=== PATIENT | male | born 1950 | race Caucasian/White ===

== ENCOUNTER 2019-08-13 06:21 | Day surgery (SDC) | payer BC ==
[2019-08-12 14:38] VITALS: BMI 32.8
[2019-08-13 06:57] LABS: #Eosinphils 0.4 thou/uL (0.0-0.7); #Lymphocytes 1.7 thou/uL (1.20-3.40); #Monocytes 0.5 thou/uL (0.11-0.59); #Neutrophils 4.3 thou/uL (1.40-6.50); %Basophils 0.6 % (0.0-1.0); %Eosinophils 5.8 % (0.0-10.0); %Monocytes 6.8 % (0.0-10.0); %Neutrophils 61.9 % (42.0-75.0); Hemoglobin 15.8 g/dL (14.0-18.0); Mean Corpuscular HGB CONC 34.1 g/dL (32.0-36.0); Mean Corpuscular Hemoglobin 31.4 pg (27.0-31.0); Mean Corpuscular Volume 92.1 fL (78.0-98.0); Mean Platelet Volume 7.5 fL (7.4-10.4); Platelet Count 179 thou/uL (130-400); RBC Distribution Width 11.9 % (11.5-14.5); Red Blood Cell (RBC) Count 5.04 mill/uL (4.70-6.10)
[2019-08-13] MEDS ORDERED: Heparin (Artline) 1,000 ML ONE (08:11)
[2019-08-13 08:16] LABS: Anion Gap 14 mmol/L (10-20); Carbon Dioxide 23 mmol/L (23-31); Chloride 107 mmol/L (98-107); Sodium 140 mmol/L (136-145)
[2019-08-13 08:17] LABS: BUN (Urea Nitrogen) 13 mg/dL (8.4-25.7); Calc. Creatinine Clearance 77 mL/min (70-130); Calcium 9.2 mg/dL (7.8-10.44); Estimated GFR-MDRD 58; Glucose 119 mg/dL (80-115)
[2019-08-13] MEDS ORDERED: Iopamidol 370 76% 100 ML VIAL ONE (09:48)
[2019-08-13] MEDS ORDERED: Heparin (Artline) 500 ML ONE (10:04)
[2019-08-13] MEDS ORDERED: Heparin 10,000 UNITS/1 ML VIAL ONE (10:04)
[2019-08-13] MEDS ORDERED: Protamine Sulfate 50 MG/5 ML VIAL ONE (10:27)
[2019-08-13] MEDS ORDERED: Lisinopril 2.5 MG TAB ONE (10:51)
[2019-08-13] MEDS ORDERED: Lisinopril 5 MG TAB PO SCH (11:15)
--- NOTE | 2019-08-17 14:55 | DIS ---
DATE OF ADMISSION: 08/13/2019 DATE OF DISCHARGE: 08/13/2019 DATE OF PROCEDURE: 08/13/2019. INDICATION FOR PROCEDURE: A 69-year-old gentleman with history of known coronary artery disease status post bypass surgery, underwent stress testing due to shortness of breath and occasional chest discomfort. He was found to have abnormal stress test was advised to undergo cardiac catheterization, was taken to [facility], prepped and draped in sterile fashion, where he underwent the procedure today. The full dictated report will be in the chart. He also has history of hypercholesterolemia, which has been under good control by medications. PROCEDURE IN HOSPITAL: Included cardiac catheterization, left ventriculogram, and coronary arteriography to evaluation of the graft as well as a GABRIEL graft, which was evaluated and also Doppler flow wire to the diagonal branch. DISCHARGE MEDICATIONS: Will include; 1. Vascepa 2 g p.o. b.i.d. 2. Also Ranexa 500 mg b.i.d. He will continue taking his other medications, which include; 1. Vytorin 20 mg a day. 2. He is also taking [id number] Prilosec p.r.n. 3. Metoprolol 50 mg b.i.d. 4. Aspirin 81 mg a day. 5. Flomax 0.4 mg b.i.d. 6. He has taken the Vytorin as once q.p.m., he will continue on the same dose he was taking previously. FOLLOWUP: His followup will be with me in the office in approximately 1 month. He will continue his routine follow up with primary care physician. HOSPITAL COURSE: This very pleasant 69-year-old gentleman, who underwent bypass surgery about 17 years ago, was seen in the office, complaining of increasing shortness of breath and dyspnea with minimal exertion, even walking upstairs, he became short of breath. He had some occasional chest discomfort. He was advised to undergo stress testing, which shows some abnormalities in distal anterior wall apex and inferior wall. He was advised to undergo cardiac catheterization. He is taken to [facility], where he underwent the procedure today. His bypasses were found to be patent. He had a bypass to the right coronary artery, which was a [place] vessel 100% occluded with bypass graft remains patent. He also had a radial graft to a diagonal branch, which was very small, less than 1 mm and appeared to be an ostial stenosis about 50%, but still had slowed down to the diagonal branch and this vessel underwent FFR, with an FFR 0.98. No indication to the [place] vessel, underwent FFR as there was some what appeared to be 50% stenosis in the diagonal branch prior to the insertion of the radial graft. However, there was no evidence of any flow limitation in the vessel. No intervention was performed. The GABRIEL to the left anterior descending artery remained patent without evidence of stenosis, a nice vessel and also distal to the anastomosis, the left anterior descending was completely normal, proximal to that between the diagonal branch and the insertion of the GABRIEL graft, the left anterior descending was 100% occluded, and the right coronary artery was also 100% occluded. He has two separate ostium for the left system and the circumflex has no evidence of disease, normal vessel with no evidence of stenosis or plaque formation. He tolerated the procedure well without difficulties or complications. He was given a 7000 units of heparin to do the FFR and at the end of the procedure, he was given 20 mg of protamine for reversal of this and the sheath was removed. He remained stable. He will be discharged home later today. On his left ventricle, his ejection fraction was 60% to 65%. His LVEDP was slightly elevated at 21 mmHg and this is as suspected he has some diastolic dysfunction. We will start him on Ranexa as well as Vascepa. We will see him back in the office in approximately 1 month. Job ID: [id number]
== END 2019-08-13 14:20 | disposition home or self-care (01) ==
LOC: CCL 06:21
PROVIDERS: ATTEND Internal Medicine Cardiovascular Disease
DX: I25.119 Atherosclerotic heart disease of native coronary artery with unspecified angina pectoris (principal); I25.719 Atherosclerosis of autologous vein coronary artery bypass graft(s) with unspecified angina pectoris; I25.82 Chronic total occlusion of coronary artery; Z79.82 Long term (current) use of aspirin; Z79.899 Other long term (current) drug therapy
CPT/HCPCS: 36415; 80048; 85025; 85347; 93459; 93571; C1769; C1887; J0153; J1644; J2720; Q9967

== ENCOUNTER 2022-02-07 02:46 | Observation (INO) | payer BC ==
[2022-02-07] MEDS ORDERED: Mag-Al 1200 mg/1200 mg/30 ML UDCUP ONE (03:35)
[2022-02-07] MEDS ORDERED: Lidocaine Viscous Sol 2% 15 ml UD Cup ONE (03:35)
[2022-02-07 04:01] LABS: #Eosinphils 0.2 thou/uL (0.0-0.7); #Lymphocytes 0.8 thou/uL (1.20-3.40); #Monocytes 0.6 thou/uL (0.11-0.59); #Neutrophils 9.4 thou/uL (1.40-6.50); %Eosinophils 1.9 % (0.0-10.0); %Lymphocytes 7.2 % (21.0-51.0); %Neutrophils 85.8 % (42.0-75.0); Mean Corpuscular HGB CONC 34.9 g/dL (32.0-36.0); Mean Corpuscular Hemoglobin 33.4 pg (27.0-31.0); Mean Corpuscular Volume 95.7 fL (78.0-98.0); Mean Platelet Volume 7.9 fL (7.4-10.4); Platelet Count 154 thou/uL (130-400); RBC Distribution Width 12.2 % (11.5-14.5); Red Blood Cell (RBC) Count 4.48 mill/uL (4.70-6.10); White Blood Cell (WBC) Count 10.9 thou/uL (4.8-10.8)
[2022-02-07 04:09] LABS: ALT (SGPT) 27 U/L (8-55); AST (SGOT) 18 U/L (5-34); Albumin 4.2 g/dL (3.4-4.8); Alkaline Phosphatase 38 U/L (40-110); Anion Gap 18 mmol/L (10-20); BUN (Urea Nitrogen) 17 mg/dL (8.4-25.7); Bilirubin, Total 0.6 mg/dL (0.2-1.2); Calc. Creatinine Clearance 0 mL/min (70-130); Calcium 9.6 mg/dL (7.8-10.44); Carbon Dioxide 18 mmol/L (23-31); Chloride 105 mmol/L (98-107); Estimated GFR 56; Globulin 2.5 g/dL (2.4-3.5); Glucose 285 mg/dL (80-115); Lipase 33 U/L (8-78); Potassium 4.4 mmol/L (3.5-5.1); Protein, Total 6.7 g/dL (5.8-8.1); Sodium 137 mmol/L (136-145)
[2022-02-07] MEDS ORDERED: Ketorolac Tromethamine 30 MG/ML VIAL ONE (04:30)
[2022-02-07] MEDS ORDERED: Acetaminophen 500 MG TAB ONE ×2 (06:23→12:30)
[2022-02-07 07:38] LABS: Troponin I Less than 0.010 ng/mL (< 0.028)
[2022-02-07 08:18] LABS: SARS-CoV-2 NAA Rapid Test Not Detected (NotDetected)
[2022-02-07] MEDS ORDERED: Dextrose 50% Abboject 50 ML SYRINGE SLOW IVP PRN (12:20)
[2022-02-07] MEDS ORDERED: Dextrose 5% in Water 1,000 ML IV PRN (12:20)
[2022-02-07] MEDS ORDERED: HumaLOG 300 UNITS/3 ML VIAL SC PRN ×2 (12:20)
[2022-02-07 12:37] LABS: Lactic Acid 3.3 mmol/L (0.5-2.2)
[2022-02-07] MEDS ORDERED: Iopamidol-370 76% 500 ML 1 ML ONE (13:26)
[2022-02-07 14:21] LABS: Hemoglobin A1c 7.1 % (4.0-6.0)
[2022-02-07 14:39] LABS: Troponin I Less than 0.010 ng/mL (< 0.028)
[2022-02-07] MEDS ORDERED: Piperacillin/Tazobactam 3.375 GM in Sodium Chloride 0.9% 100 ML IVPB SCH ×2 (15:00→15:30)
[2022-02-07] MEDS ORDERED: Pantoprazole 40 MG VIAL IVP SCH ×2 (15:30→21:00)
[2022-02-07 15:44] VITALS: BMI 33.4
[2022-02-07] MEDS ORDERED: Morphine 2 MG/ML VIAL SLOW IVP SCH (18:15)
[2022-02-07] MEDS ORDERED: Acetaminophen 325 MG TAB PO PRN (21:31)
[2022-02-07] MEDS: Pantoprazole 40 MG VIAL IVP SCH (21:41)
[2022-02-07] MEDS: Piperacillin/Tazobactam 3.375 GM in Sodium Chloride 0.9% 100 ML IVPB SCH (21:41)
[2022-02-08 00:04] LABS: Bacteria/HPF None Seen HPF (None Seen); Bilirubin Negative (Negative); Blood, Urine Negative (Negative); Clarity Clear (Clear); Glucose, Urine (Dipstick) >=1000 mg/dL (Negative); Ketone, Urine Negative (Negative); Leukocyte Negative Leu/uL (Negative); Nitrite Negative (Negative); Protein, Urine (Dipstick) Negative (Neg-Trace); RBC/HPF 0-3 HPF (0-3); Squamous Epithelial None Seen HPF (0-3); Urobilinogen Normal mg/dL (Less than 2); WBC/HPF 0-3 HPF (0-3); pH, Urine 5.5 (5.0-9.0)
[2022-02-08 00:07] LABS: Specific Gravity, Urine 1.051 (1.002-1.036); Urine Culture Reflex No No
[2022-02-08] MEDS: Piperacillin/Tazobactam 3.375 GM in Sodium Chloride 0.9% 100 ML IVPB SCH ×3 (04:15→20:49)
[2022-02-08 04:59] LABS: #Lymphocytes 0.9 thou/uL (1.20-3.40); #Monocytes 0.6 thou/uL (0.11-0.59); #Neutrophils 12.9 thou/uL (1.40-6.50); %Eosinophils 0.1 % (0.0-10.0); %Lymphocytes 6.2 % (21.0-51.0); %Neutrophils 89.7 % (42.0-75.0); Hemoglobin 13.3 g/dL (14.0-18.0); Mean Corpuscular HGB CONC 33.6 g/dL (32.0-36.0); Mean Corpuscular Hemoglobin 32.6 pg (27.0-31.0); Mean Platelet Volume 7.7 fL (7.4-10.4); Platelet Count 121 thou/uL (130-400); RBC Distribution Width 12.5 % (11.5-14.5); Red Blood Cell (RBC) Count 4.08 mill/uL (4.70-6.10); White Blood Cell (WBC) Count 14.4 thou/uL (4.8-10.8)
[2022-02-08 05:16] LABS: Anion Gap 15 mmol/L (10-20); BUN (Urea Nitrogen) 17 mg/dL (8.4-25.7); Calc. Creatinine Clearance 77 mL/min (70-130); Calcium 8.8 mg/dL (7.8-10.44); Carbon Dioxide 19 mmol/L (23-31); Chloride 107 mmol/L (98-107); Estimated GFR 63; Glucose 149 mg/dL (80-115); Sodium 137 mmol/L (136-145)
[2022-02-08] MEDS ORDERED: Sodium Chloride 0.9% 1,000 ML IV SCH ×3 (08:00→12:00)
[2022-02-08] MEDS ORDERED: Ketorolac Tromethamine 30 MG/ML VIAL IVP SCH (08:00)
[2022-02-08] MEDS ORDERED: Ketorolac Tromethamine 30 MG/ML VIAL ONE ×2 (08:21→10:26)
[2022-02-08] MEDS ORDERED: fentaNYL Citrate/PF 100 MCG/2 ML SYRINGE ONE ×2 (08:47→09:59)
[2022-02-08] MEDS ORDERED: Rocuronium Bromide 10 MG/ML (10ML VIAL) ONE (09:01)
[2022-02-08] MEDS ORDERED: PROPOFOL 200 MG/20 ML VIAL ONE (09:01)
[2022-02-08] MEDS ORDERED: Phenylephrine 10 MG/ML VIAL ONE (09:01)
[2022-02-08] MEDS ORDERED: Ondansetron PF 4 MG/2 ML Vial ONE (09:01)
[2022-02-08] MEDS ORDERED: Lidocaine 1% PF 5 ML VIAL ONE (09:01)
[2022-02-08] MEDS ORDERED: SUGAMMADEX SODIUM 200 MG/2 ML VIAL ONE (09:54)
[2022-02-08] MEDS ORDERED: Ibuprofen 600 MG TAB PO PRN (10:19)
[2022-02-08] MEDS ORDERED: HYDROcodone/Acetaminophen 5/325 mg Tablet PO PRN (10:19)
[2022-02-08] MEDS ORDERED: Acetaminophen 500 MG TAB PO PRN (10:19)
[2022-02-08] MEDS ORDERED: Promethazine HCl 25 MG/ML VIAL IM PRN (10:28)
[2022-02-08] MEDS ORDERED: Promethazine HCl 25 MG/ML VIAL IVPB PRN (10:28)
[2022-02-08] MEDS ORDERED: Ondansetron HCl/PF 4 MG/2 ML Vial IVP PRN (10:28)
[2022-02-08] MEDS ORDERED: Meperidine HCl/PF 25 MG/ML VIAL SLOW IVP PRN (10:28)
[2022-02-08] MEDS ORDERED: Acetaminophen 500 MG TAB PO SCH (10:30)
[2022-02-08] MEDS ORDERED: Amoxicillin/Potassium Clav 500 MG TAB PO SCH (11:00)
[2022-02-08] MEDS: Sodium Chloride 0.9% 1,000 ML IV SCH ×2 (12:09→17:12)
[2022-02-08] MEDS: Lactated Ringer's 1,000 ML IV SCH ×2 (12:10→18:45)
[2022-02-08] MEDS: Pantoprazole 40 MG VIAL IVP SCH (12:49)
[2022-02-08] MEDS: Tamsulosin HCl 0.4 MG CAP PO SCH (20:50)
[2022-02-08] MEDS ORDERED: Non-Formulary Item 1 EACH (Omeprazole Magnesium [Prilosec] 10 MG Suspdr.Pkt) PO SCH (21:00)
[2022-02-08] MEDS ORDERED: Ezetimibe 10 MG TAB PO SCH (21:00)
[2022-02-08] MEDS ORDERED: Simvastatin 10 MG TAB PO SCH ×2 (21:00)
[2022-02-09] MEDS: Sodium Chloride 0.9% 1,000 ML IV SCH ×2 (01:15→04:12)
[2022-02-09] MEDS: Piperacillin/Tazobactam 3.375 GM in Sodium Chloride 0.9% 100 ML IVPB SCH (04:05)
[2022-02-09 05:09] LABS: #Eosinphils 0.1 thou/uL (0.0-0.7); #Lymphocytes 0.9 thou/uL (1.20-3.40); #Monocytes 0.3 thou/uL (0.11-0.59); #Neutrophils 8.5 thou/uL (1.40-6.50); %Basophils 0.1 % (0.0-1.0); %Eosinophils 0.7 % (0.0-10.0); %Lymphocytes 8.8 % (21.0-51.0); %Monocytes 2.8 % (0.0-10.0); %Neutrophils 87.6 % (42.0-75.0); Hemoglobin 12.7 g/dL (14.0-18.0); Mean Corpuscular HGB CONC 32.4 g/dL (32.0-36.0); Mean Corpuscular Hemoglobin 32.9 pg (27.0-31.0); Mean Platelet Volume 9.4 fL (7.4-10.4); Platelet Count 107 thou/uL (130-400); RBC Distribution Width 12.6 % (11.5-14.5); Red Blood Cell (RBC) Count 3.85 mill/uL (4.70-6.10); White Blood Cell (WBC) Count 9.7 thou/uL (4.8-10.8)
[2022-02-09 05:13] LABS: ALT (SGPT) 43 U/L (8-55); AST (SGOT) 52 U/L (5-34); Alkaline Phosphatase 36 U/L (40-110); Anion Gap 14 mmol/L (10-20); BUN (Urea Nitrogen) 15 mg/dL (8.4-25.7); Bilirubin, Total 0.7 mg/dL (0.2-1.2); Calc. Creatinine Clearance 85 mL/min (70-130); Calcium 8.1 mg/dL (7.8-10.44); Carbon Dioxide 16 mmol/L (23-31); Chloride 111 mmol/L (98-107); Estimated GFR 70; Globulin 3.2 g/dL (2.4-3.5); Glucose 168 mg/dL (80-115); Magnesium 1.9 mg/dL (1.6-2.6); Potassium 4.9 mmol/L (3.5-5.1); Protein, Total 6.2 g/dL (5.8-8.1); Sodium 136 mmol/L (136-145)
[2022-02-09] MEDS ORDERED: Lisinopril 5 MG TAB PO SCH (09:00)
[2022-02-09] MEDS ORDERED: Amoxicillin/Potassium Clav 500 MG TAB PO SCH (09:00)
[2022-02-09] MEDS ORDERED: Non-Formulary Item 1 EACH (Rosuvastatin Calcium [Rosuvastatin Calcium] 40 MG Tablet) PO SCH (09:00)
[2022-02-09] MEDS ORDERED: Polyethylene Glycol 3350 17 GM Packet PO SCH (09:00)
[2022-02-09] MEDS ORDERED: SIMVASTATIN PO SCH (09:00)
[2022-02-09] MEDS ORDERED: Aspirin 81 mg Enteric Coated Tablet PO SCH (09:00)
[2022-02-09] MEDS ORDERED: EZETIMIBE PO SCH (09:00)
[2022-02-09] MEDS ORDERED: Rosuvastatin 20 MG TAB PO SCH ×2 (09:00)
[2022-02-09] MEDS: Tamsulosin HCl 0.4 MG CAP PO SCH (09:34)
[2022-02-09 11:19] VITALS: BP 118/64
[2022-02-09 13:49] VITALS: TEMP 98.8
== END 2022-02-09 15:34 | disposition home or self-care (01) ==
LOC: ERS 02:46 → 2SW 10:55 → OBSVTOIN 02-08 10:24 → INTOOBSV 02-08 10:24 → OBSVTOIN 02-08 15:22
PROVIDERS: ADMIT Hospitalist; ATTEND Hospitalist
PROC: 0FT44ZZ Resection of Gallbladder, Percutaneous Endoscopic Approach (ICD-10-PCS; principal; 2022-02-09)
DX: K80.00 Calculus of gallbladder with acute cholecystitis without obstruction (principal); K82.A1 Gangrene of gallbladder in cholecystitis; K83.8 Other specified diseases of biliary tract; N28.1 Cyst of kidney, acquired; K76.89 Other specified diseases of liver; K21.9 Gastro-esophageal reflux disease without esophagitis; Z20.822 Contact with and (suspected) exposure to COVID-19; I25.10 Atherosclerotic heart disease of native coronary artery without angina pectoris; I10 Essential (primary) hypertension; E11.9 Type 2 diabetes mellitus without complications; Z79.82 Long term (current) use of aspirin; Z79.899 Other long term (current) drug therapy; Z86.16 Personal history of COVID-19; Z95.1 Presence of aortocoronary bypass graft
CPT/HCPCS: 36415; 36416; 71045; 74177; 76705; 78227; 80048; 80053; 81001; 83036; 83605; 83690; 83735; 84443; 84484; 85025; 87040; 88304; 93005; 96374; 96375; 96376; A9537; C1713; C9113; G0378; J1885; J2270; J2370; J2405; J2543; J2704; J3490; J7050; Q9967

== ENCOUNTER 2022-03-12 17:24 | Inpatient (IN) | payer BC ==
[~2022-03-12 17:24] MED LIST: Iopamidol 370 76% 100 ML VIAL ONE
[2022-03-12] MEDS ORDERED: Cefepime 2 GM VIAL ONE (18:26)
[2022-03-12] MEDS ORDERED: Ibuprofen 800 MG TAB ONE (18:27)
[2022-03-12 18:46] LABS: #Eosinphils 0.2 thou/uL (0.0-0.7); #Lymphocytes 1.1 thou/uL (1.20-3.40); #Monocytes 0.5 thou/uL (0.11-0.59); #Neutrophils 12.4 thou/uL (1.40-6.50); %Basophils 0.3 % (0.0-1.0); %Eosinophils 1.2 % (0.0-10.0); %Lymphocytes 7.4 % (21.0-51.0); %Monocytes 3.3 % (0.0-10.0); %Neutrophils 87.8 % (42.0-75.0); Hemoglobin 15.4 g/dL (14.0-18.0); Mean Corpuscular HGB CONC 33.3 g/dL (32.0-36.0); Mean Corpuscular Hemoglobin 31.9 pg (27.0-31.0); Mean Corpuscular Volume 95.8 fL (78.0-98.0); Mean Platelet Volume 8.5 fL (7.4-10.4); Platelet Count 139 thou/uL (130-400); RBC Distribution Width 12.9 % (11.5-14.5); Red Blood Cell (RBC) Count 4.84 mill/uL (4.70-6.10); White Blood Cell (WBC) Count 14.1 thou/uL (4.8-10.8)
[2022-03-12 18:55] LABS: Bacteria/HPF None Seen HPF (None Seen); Bilirubin Negative (Negative); Blood, Urine Negative (Negative); Clarity Turbid (Clear); Glucose, Urine (Dipstick) 30 mg/dL (Negative); Ketone, Urine 40 mg/dL (Negative); Leukocyte 500 Leu/uL (Negative); Nitrite Negative (Negative); Protein, Urine (Dipstick) 10 mg/dL (Neg-Trace); RBC/HPF 0-3 HPF (0-3); Specific Gravity, Urine 1.022 (1.002-1.036); Squamous Epithelial 0-3 HPF (0-3); Urobilinogen Normal mg/dL (Less than 2); WBC/HPF Greater than 50 HPF (0-3); pH, Urine 5.5 (5.0-9.0)
[2022-03-12 19:04] LABS: ALT (SGPT) 20 U/L (8-55); AST (SGOT) 21 U/L (5-34); Albumin 4.3 g/dL (3.4-4.8); Alkaline Phosphatase 35 U/L (40-110); Anion Gap 18 mmol/L (10-20); BUN (Urea Nitrogen) 16 mg/dL (8.4-25.7); Bilirubin, Total 0.7 mg/dL (0.2-1.2); CK (CPK) 136 U/L (30-200); Calc. Creatinine Clearance 0 mL/min (70-130); Calcium 9.5 mg/dL (7.8-10.44); Carbon Dioxide 21 mmol/L (23-31); Chloride 103 mmol/L (98-107); Estimated GFR 53; Globulin 2.9 g/dL (2.4-3.5); Glucose 136 mg/dL (80-115); Lipase 37 U/L (8-78); Potassium 4.2 mmol/L (3.5-5.1); Protein, Total 7.2 g/dL (5.8-8.1); Sodium 138 mmol/L (136-145)
[2022-03-12] MEDS ORDERED: Vancomycin 1 GM/200 ML BAG ONE (19:06)
[2022-03-12] MEDS ORDERED: Ondansetron ODT 4 MG TAB PO PRN (20:36)
[2022-03-12] MEDS ORDERED: Acetaminophen 650 MG Suppository PR PRN (20:36)
[2022-03-12] MEDS ORDERED: Ondansetron PF 4 MG/2 ML Vial IVP PRN ×2 (20:36→20:45)
[2022-03-12] MEDS ORDERED: Ondansetron ODT 4 MG TAB SL PRN (20:45)
[2022-03-12] MEDS ORDERED: Dextrose 50% Abboject 50 ML SYRINGE SLOW IVP PRN (20:45)
[2022-03-12] MEDS ORDERED: HumaLOG 300 UNITS/3 ML VIAL SC PRN ×2 (20:45)
[2022-03-12] MEDS ORDERED: Dextrose 5% in Water 1,000 ML IV PRN (20:45)
[2022-03-12] MEDS ORDERED: Vancomycin 1 GM in Premix Bag 1 BAG IVPB SCH (21:00)
[2022-03-12] MEDS: Sodium Chloride 0.9% 1,000 ML IV SCH (22:00)
[2022-03-12] MEDS ORDERED: cefTRIAXone\\ROCEPHIN 2 GM in Sodium Chloride 0.9% 100 ML IVPB SCH (22:00)
[2022-03-12 23:19] VITALS: BMI 33.0
[2022-03-13] MEDS: Acetaminophen 325 MG TAB PO PRN ×3 (00:04→20:27)
[2022-03-13] MEDS ORDERED: Ibuprofen 800 MG TAB PO SCH (00:30)
[2022-03-13] MEDS ORDERED: Pantoprazole 40 MG VIAL IVP SCH (01:00)
[2022-03-13] MEDS: Sodium Chloride 0.9% 1,000 ML IV SCH ×2 (04:51→14:24)
[2022-03-13] MEDS: Cefepime 2 GM in Sodium Chloride 0.9% 100 ML IVPB SCH ×2 (06:14→17:45)
[2022-03-13 07:03] LABS: #Eosinphils 0.1 thou/uL (0.0-0.7); #Monocytes 0.7 thou/uL (0.11-0.59); #Neutrophils 13.6 thou/uL (1.40-6.50); %Basophils 0.1 % (0.0-1.0); %Eosinophils 0.7 % (0.0-10.0); %Lymphocytes 6.3 % (21.0-51.0); %Monocytes 4.5 % (0.0-10.0); %Neutrophils 88.4 % (42.0-75.0); Hemoglobin 13.1 g/dL (14.0-18.0); Mean Corpuscular HGB CONC 33.4 g/dL (32.0-36.0); Mean Corpuscular Hemoglobin 31.7 pg (27.0-31.0); Mean Corpuscular Volume 95.1 fL (78.0-98.0); Platelet Count 139 thou/uL (130-400); RBC Distribution Width 12.8 % (11.5-14.5); Red Blood Cell (RBC) Count 4.14 mill/uL (4.70-6.10); White Blood Cell (WBC) Count 15.3 thou/uL (4.8-10.8)
[2022-03-13 07:22] LABS: Anion Gap 15 mmol/L (10-20); BUN (Urea Nitrogen) 14 mg/dL (8.4-25.7); Calc. Creatinine Clearance 76 mL/min (70-130); Carbon Dioxide 21 mmol/L (23-31); Chloride 107 mmol/L (98-107); Estimated GFR 65; Glucose 127 mg/dL (80-115); Potassium 3.6 mmol/L (3.5-5.1); Sodium 139 mmol/L (136-145)
[2022-03-13] MEDS: Aspirin 81 mg Enteric Coated Tablet PO SCH (08:29)
[2022-03-13] MEDS: Tamsulosin HCl 0.4 MG CAP PO SCH ×2 (08:29→20:28)
[2022-03-13] MEDS: metFORMIN 500 MG TAB PO SCH ×2 (08:30→17:41)
[2022-03-13] MEDS: Enoxaparin Sodium 40 MG/0.4 ML SYRINGE SC SCH (08:30)
[2022-03-13] MEDS ORDERED: EZETIMIBE PO SCH (09:00)
[2022-03-13] MEDS ORDERED: SIMVASTATIN PO SCH (09:00)
[2022-03-13] MEDS ORDERED: Rosuvastatin 5 MG TAB PO SCH (09:00)
[2022-03-13] MEDS: Rosuvastatin 5 MG TAB PO SCH (11:41)
[2022-03-13] MEDS ORDERED: Ketorolac Tromethamine 30 MG/ML VIAL IVP SCH (13:00)
[2022-03-13] MEDS: Phenazopyridine HCl 100 MG TAB PO SCH ×2 (14:22→20:28)
[2022-03-13] MEDS: Ketorolac Tromethamine 30 MG/ML VIAL IVP SCH ×2 (17:42→23:59)
[2022-03-13] MEDS: Famotidine 20 MG TAB PO SCH (20:28)
[2022-03-13] MEDS: Ezetimibe 10 MG TAB PO SCH (20:28)
[2022-03-13] MEDS ORDERED: Simvastatin 20 MG TAB PO SCH (21:00)
[2022-03-13] MEDS ORDERED: Simvastatin 10 MG TAB PO SCH (21:00)
[2022-03-14] MEDS: Acetaminophen 325 MG TAB PO PRN ×2 (05:18→17:48)
[2022-03-14] MEDS: Cefepime 2 GM in Sodium Chloride 0.9% 100 ML IVPB SCH ×2 (05:18→17:50)
[2022-03-14] MEDS: Ketorolac Tromethamine 30 MG/ML VIAL IVP SCH ×4 (05:19→23:56)
[2022-03-14 06:25] LABS: #Eosinphils 0.1 thou/uL (0.0-0.7); #Lymphocytes 1.1 thou/uL (1.20-3.40); #Monocytes 0.6 thou/uL (0.11-0.59); #Neutrophils 11.8 thou/uL (1.40-6.50); %Basophils 0.2 % (0.0-1.0); %Lymphocytes 7.9 % (21.0-51.0); %Monocytes 4.5 % (0.0-10.0); %Neutrophils 86.5 % (42.0-75.0); Hemoglobin 11.7 g/dL (14.0-18.0); Mean Corpuscular HGB CONC 32.4 g/dL (32.0-36.0); Mean Corpuscular Volume 95.6 fL (78.0-98.0); Platelet Count 115 thou/uL (130-400); Platelet Morphology Comment Appears Decreased; RBC Distribution Width 13.1 % (11.5-14.5); Red Blood Cell (RBC) Count 3.77 mill/uL (4.70-6.10); White Blood Cell (WBC) Count 13.6 thou/uL (4.8-10.8)
[2022-03-14 06:27] LABS: Anion Gap 12 mmol/L (10-20); BUN (Urea Nitrogen) 12 mg/dL (8.4-25.7); Calc. Creatinine Clearance 88 mL/min (70-130); Calcium 8.3 mg/dL (7.8-10.44); Carbon Dioxide 20 mmol/L (23-31); Chloride 109 mmol/L (98-107); Estimated GFR 78; Glucose 136 mg/dL (80-115); Potassium 3.6 mmol/L (3.5-5.1); Sodium 137 mmol/L (136-145)
[2022-03-14] MEDS: Fluticasone Propionate Nasal Spray 16 gm Bottle NASAL SCH ×3 (06:33→08:59)
[2022-03-14] MEDS: Phenazopyridine HCl 100 MG TAB PO SCH ×3 (08:54→22:02)
[2022-03-14] MEDS: Aspirin 81 mg Enteric Coated Tablet PO SCH (08:54)
[2022-03-14] MEDS: Tamsulosin HCl 0.4 MG CAP PO SCH ×2 (08:54→20:28)
[2022-03-14] MEDS: metFORMIN 500 MG TAB PO SCH ×2 (08:54→17:51)
[2022-03-14] MEDS: Famotidine 20 MG TAB PO SCH ×2 (08:54→20:27)
[2022-03-14] MEDS: Enoxaparin Sodium 40 MG/0.4 ML SYRINGE SC SCH (08:54)
[2022-03-14] MEDS: Rosuvastatin 5 MG TAB PO SCH (08:54)
[2022-03-14] MEDS: Sodium Chloride 0.9% 1,000 ML IV SCH ×2 (15:28→20:46)
[2022-03-14] MEDS: Ezetimibe 10 MG TAB PO SCH ×2 (20:27→20:28)
[2022-03-14] MEDS: Rosuvastatin 20 MG TAB PO SCH (20:28)
[2022-03-14] MEDS: traMADol HCl 50 MG TAB PO PRN (20:32)
[2022-03-15] MEDS: Cefepime 2 GM in Sodium Chloride 0.9% 100 ML IVPB SCH (05:51)
[2022-03-15] MEDS: Sodium Chloride 0.9% 1,000 ML IV SCH (05:55)
[2022-03-15 06:30] LABS: #Eosinphils 0.5 thou/uL (0.0-0.7); #Lymphocytes 1.1 thou/uL (1.20-3.40); #Monocytes 0.6 thou/uL (0.11-0.59); #Neutrophils 8.8 thou/uL (1.40-6.50); %Basophils 0.1 % (0.0-1.0); %Eosinophils 4.7 % (0.0-10.0); %Lymphocytes 9.6 % (21.0-51.0); %Monocytes 5.4 % (0.0-10.0); %Neutrophils 80.1 % (42.0-75.0); Hemoglobin 11.6 g/dL (14.0-18.0); Mean Corpuscular HGB CONC 32.6 g/dL (32.0-36.0); Mean Corpuscular Hemoglobin 31.3 pg (27.0-31.0); Mean Corpuscular Volume 95.9 fL (78.0-98.0); Mean Platelet Volume 8.2 fL (7.4-10.4); Platelet Count 122 thou/uL (130-400)
[2022-03-15 07:03] LABS: Anion Gap 13 mmol/L (10-20); BUN (Urea Nitrogen) 11 mg/dL (8.4-25.7); Calc. Creatinine Clearance 107 mL/min (70-130); Calcium 8.4 mg/dL (7.8-10.44); Carbon Dioxide 19 mmol/L (23-31); Chloride 110 mmol/L (98-107); Estimated GFR 94; Glucose 132 mg/dL (80-115); Potassium 3.6 mmol/L (3.5-5.1); Sodium 138 mmol/L (136-145)
[2022-03-15] MEDS: Enoxaparin Sodium 40 MG/0.4 ML SYRINGE SC SCH (09:01)
[2022-03-15] MEDS: metFORMIN 500 MG TAB PO SCH ×2 (09:01→18:38)
[2022-03-15] MEDS: Tamsulosin HCl 0.4 MG CAP PO SCH ×2 (09:01→21:00)
[2022-03-15] MEDS: Phenazopyridine HCl 100 MG TAB PO SCH ×3 (09:01→20:59)
[2022-03-15] MEDS: Aspirin 81 mg Enteric Coated Tablet PO SCH (09:01)
[2022-03-15] MEDS: Famotidine 20 MG TAB PO SCH (09:02)
[2022-03-15] MEDS ORDERED: Ketorolac Tromethamine 30 MG/ML VIAL IVP PRN (09:04)
[2022-03-15] MEDS: Acetaminophen 325 MG TAB PO PRN ×2 (09:07→17:13)
[2022-03-15] MEDS: traMADol HCl 50 MG TAB PO PRN (09:08)
[2022-03-15] MEDS: Fluticasone Propionate Nasal Spray 16 gm Bottle NASAL SCH (09:09)
[2022-03-15] MEDS: Ezetimibe 10 MG TAB PO SCH (20:58)
[2022-03-15] MEDS: Rosuvastatin 20 MG TAB PO SCH (20:59)
[2022-03-15] MEDS: Ciprofloxacin 500 MG TAB PO SCH (21:00)
[2022-03-16] MEDS: Ciprofloxacin 500 MG TAB PO SCH (05:25)
[2022-03-16] MEDS: traMADol HCl 50 MG TAB PO PRN (05:25)
[2022-03-16 07:12] LABS: #Eosinphils 0.4 thou/uL (0.0-0.7); #Lymphocytes 0.9 thou/uL (1.20-3.40); #Monocytes 0.5 thou/uL (0.11-0.59); #Neutrophils 5.6 thou/uL (1.40-6.50); %Eosinophils 5.1 % (0.0-10.0); %Lymphocytes 12.1 % (21.0-51.0); %Monocytes 7.3 % (0.0-10.0); %Neutrophils 75.5 % (42.0-75.0); Hemoglobin 11.3 g/dL (14.0-18.0); Mean Corpuscular Hemoglobin 31.3 pg (27.0-31.0); Mean Corpuscular Volume 94.9 fL (78.0-98.0); Mean Platelet Volume 7.7 fL (7.4-10.4); Platelet Count 152 thou/uL (130-400); Red Blood Cell (RBC) Count 3.61 mill/uL (4.70-6.10); White Blood Cell (WBC) Count 7.4 thou/uL (4.8-10.8)
[2022-03-16 07:33] LABS: Anion Gap 13 mmol/L (10-20); BUN (Urea Nitrogen) 11 mg/dL (8.4-25.7); Calc. Creatinine Clearance 93 mL/min (70-130); Calcium 8.8 mg/dL (7.8-10.44); Carbon Dioxide 22 mmol/L (23-31); Chloride 106 mmol/L (98-107); Estimated GFR 82; Glucose 159 mg/dL (80-115); Potassium 3.4 mmol/L (3.5-5.1); Sodium 138 mmol/L (136-145)
[2022-03-16] MEDS ORDERED: Potassium Chloride 20 MEQ TAB PO SCH (08:15)
[2022-03-16] MEDS: Phenazopyridine HCl 100 MG TAB PO SCH (08:40)
[2022-03-16] MEDS: metFORMIN 500 MG TAB PO SCH (08:41)
[2022-03-16] MEDS: Aspirin 81 mg Enteric Coated Tablet PO SCH (08:41)
[2022-03-16] MEDS: Tamsulosin HCl 0.4 MG CAP PO SCH (08:41)
[2022-03-16] MEDS: Fluticasone Propionate Nasal Spray 16 gm Bottle NASAL SCH (08:41)
[2022-03-16 09:08] VITALS: BP 134/68; TEMP 98.5
== END 2022-03-16 10:31 | disposition home or self-care (01) | DRG 872 ==
LOC: ERS 17:24 → T4-B 19:23
PROVIDERS: ADMIT Family Medicine; ATTEND Family Medicine
DX: A41.9 Sepsis, unspecified organism (principal); N13.8 Other obstructive and reflux uropathy; N41.0 Acute prostatitis; Z20.822 Contact with and (suspected) exposure to COVID-19; E78.5 Hyperlipidemia, unspecified; I25.10 Atherosclerotic heart disease of native coronary artery without angina pectoris; N40.0 Benign prostatic hyperplasia without lower urinary tract symptoms; N20.0 Calculus of kidney; K76.89 Other specified diseases of liver; N28.1 Cyst of kidney, acquired; N18.30 Chronic kidney disease, stage 3 unspecified; E11.22 Type 2 diabetes mellitus with diabetic chronic kidney disease; D63.1 Anemia in chronic kidney disease; Z95.1 Presence of aortocoronary bypass graft; Z90.49 Acquired absence of other specified parts of digestive tract; Z79.899 Other long term (current) drug therapy; Z79.82 Long term (current) use of aspirin; Z79.84 Long term (current) use of oral hypoglycemic drugs
CPT/HCPCS: 36415; 36416; 71045; 74177; 80048; 80053; 81003; 81015; 82550; 83605; 83690; 83880; 84484; 85025; 87040; 87804; 93005; 96365; 96367; C9113; J0692; J1650; J1885; J3370; J3490; J7050; Q9967; U0003; U0005

== ENCOUNTER 2022-04-05 13:45 | Inpatient (IN) | payer BC ==
[~2022-04-05 13:45] MED LIST changes: -Iopamidol 370 76% 100 ML VIAL ONE; +Iopamidol-370 76% 500 ML 1 ML ONE
[2022-04-05 14:32] LABS: #Eosinphils 0.2 thou/uL (0.0-0.7); #Lymphocytes 1.3 thou/uL (1.20-3.40); #Monocytes 0.8 thou/uL (0.11-0.59); #Neutrophils 11.7 thou/uL (1.40-6.50); %Basophils 0.1 % (0.0-1.0); %Eosinophils 1.8 % (0.0-10.0); %Lymphocytes 9.1 % (21.0-51.0); %Monocytes 5.6 % (0.0-10.0); %Neutrophils 83.5 % (42.0-75.0); Hemoglobin 10.9 g/dL (14.0-18.0); Mean Corpuscular HGB CONC 32.9 g/dL (32.0-36.0); Mean Corpuscular Hemoglobin 32.2 pg (27.0-31.0); Mean Corpuscular Volume 97.6 fL (78.0-98.0); Mean Platelet Volume 7.3 fL (7.4-10.4); Platelet Count 195 thou/uL (130-400); RBC Distribution Width 13.9 % (11.5-14.5); Red Blood Cell (RBC) Count 3.39 mill/uL (4.70-6.10)
[2022-04-05 14:51] LABS: ALT (SGPT) 12 U/L (8-55); AST (SGOT) 12 U/L (5-34); Albumin 3.8 g/dL (3.4-4.8); Alkaline Phosphatase 38 U/L (40-110); Anion Gap 14 mmol/L (10-20); BUN (Urea Nitrogen) 18 mg/dL (8.4-25.7); Bilirubin, Total 0.7 mg/dL (0.2-1.2); Calc. Creatinine Clearance 0 mL/min (70-130); Calcium 9.2 mg/dL (7.8-10.44); Carbon Dioxide 22 mmol/L (23-31); Chloride 103 mmol/L (98-107); Estimated GFR 58; Globulin 2.7 g/dL (2.4-3.5); Glucose 153 mg/dL (80-115); Lipase 23 U/L (8-78); Protein, Total 6.5 g/dL (5.8-8.1); Sodium 135 mmol/L (136-145)
[2022-04-05 15:36] LABS: Clarity Hazy (Clear)
[2022-04-05 15:37] LABS: Bilirubin Unable to Interpret (Negative); Blood, Urine Unable to Interpret (Negative); Glucose, Urine (Dipstick) Unable to Interpret mg/dL (Negative); Ketone, Urine Unable to Interpret mg/dL (Negative); Leukocyte Unable to Interpret Leu/uL (Negative); Nitrite Unable to Interpret (Negative); Protein, Urine (Dipstick) Unable to Interpret mg/dL (Neg-Trace); Specific Gravity, Urine 1.018 (1.002-1.036); Urobilinogen UNABLE TO INTERPRET mg/dL (Less than 2); pH, Urine 5.3 (5.0-9.0)
[2022-04-05 15:38] LABS: Bacteria/HPF 4+ HPF (None Seen); RBC/HPF 0-3 HPF (0-3); Squamous Epithelial 0-3 HPF (0-3)
[2022-04-05] MEDS ORDERED: Piperacillin/Tazobactam 4.5 GM VIAL ONE (15:48)
[2022-04-05] MEDS ORDERED: Ketorolac Tromethamine 30 MG/ML VIAL ONE (16:07)
[2022-04-05] MEDS ORDERED: HumaLOG 300 UNITS/3 ML VIAL SC PRN (16:56)
[2022-04-05] MEDS ORDERED: Dextrose 50% Abboject 50 ML SYRINGE SLOW IVP PRN (16:56)
[2022-04-05] MEDS ORDERED: Dextrose 5% in Water 1,000 ML IV PRN (16:56)
[2022-04-05] MEDS ORDERED: Senokot S 8.6-50 MG TAB PO PRN (16:59)
[2022-04-05] MEDS ORDERED: Ondansetron ODT 4 MG TAB PO PRN (16:59)
[2022-04-05] MEDS: Sodium Chloride 0.9% 1,000 ML IV SCH (17:00)
[2022-04-05] MEDS ORDERED: Morphine 2 MG/ML VIAL SLOW IVP PRN (17:05)
[2022-04-05] MEDS ORDERED: Piperacillin/Tazobactam 4.5 GM in Sodium Chloride 0.9% 100 ML IVPB SCH (17:15)
[2022-04-05] MEDS ORDERED: Ondansetron ODT 4 MG TAB SL PRN (18:00)
[2022-04-05] MEDS ORDERED: Ondansetron PF 4 MG/2 ML Vial IVP PRN (18:00)
[2022-04-05] MEDS ORDERED: Acetaminophen 325 MG TAB PO PRN (18:00)
[2022-04-05] MEDS ORDERED: Lactated Ringer's 1,000 ML IV SCH (18:00)
[2022-04-05 18:33] VITALS: BMI 33.7
[2022-04-05 18:39] LABS: Lactic Acid 1.4 mmol/L (0.5-2.2)
[2022-04-05] MEDS ORDERED: [UNRECOGNIZED DRUG - OTHER] PO SCH (21:00)
[2022-04-05] MEDS: Tamsulosin HCl 0.4 MG CAP PO SCH (21:24)
[2022-04-05] MEDS: Enoxaparin Sodium 40 MG/0.4 ML SYRINGE SC SCH (21:24)
[2022-04-05] MEDS: Piperacillin/Tazobactam 3.375 GM in Sodium Chloride 0.9% 100 ML IVPB SCH (21:24)
[2022-04-05] MEDS: Ezetimibe 10 MG TAB PO SCH (21:25)
[2022-04-05] MEDS: traMADol HCl 50 MG TAB PO PRN (21:25)
[2022-04-05] MEDS: Rosuvastatin 20 MG TAB PO SCH (21:25)
[2022-04-06] MEDS: Piperacillin/Tazobactam 3.375 GM in Sodium Chloride 0.9% 100 ML IVPB SCH ×3 (03:39→20:15)
[2022-04-06 04:39] LABS: #Eosinphils 0.4 thou/uL (0.0-0.7); #Lymphocytes 1.4 thou/uL (1.20-3.40); #Monocytes 0.6 thou/uL (0.11-0.59); #Neutrophils 7.3 thou/uL (1.40-6.50); %Basophils 0.2 % (0.0-1.0); %Eosinophils 4.2 % (0.0-10.0); %Lymphocytes 14.3 % (21.0-51.0); %Monocytes 6.5 % (0.0-10.0); %Neutrophils 74.8 % (42.0-75.0); Hemoglobin 9.7 g/dL (14.0-18.0); Mean Corpuscular HGB CONC 32.5 g/dL (32.0-36.0); Mean Corpuscular Hemoglobin 31.9 pg (27.0-31.0); Mean Platelet Volume 7.4 fL (7.4-10.4); Platelet Count 183 thou/uL (130-400); RBC Distribution Width 13.9 % (11.5-14.5); Red Blood Cell (RBC) Count 3.05 mill/uL (4.70-6.10); White Blood Cell (WBC) Count 9.8 thou/uL (4.8-10.8)
[2022-04-06 04:59] LABS: Anion Gap 12 mmol/L (10-20); BUN (Urea Nitrogen) 18 mg/dL (8.4-25.7); Calc. Creatinine Clearance 82 mL/min (70-130); Calcium 8.5 mg/dL (7.8-10.44); Carbon Dioxide 22 mmol/L (23-31); Chloride 107 mmol/L (98-107); Estimated GFR 70; Glucose 120 mg/dL (80-115); Potassium 3.9 mmol/L (3.5-5.1); Sodium 137 mmol/L (136-145)
[2022-04-06] MEDS: Sodium Chloride 0.9% 1,000 ML IV SCH (06:08)
[2022-04-06] MEDS: Tamsulosin HCl 0.4 MG CAP PO SCH ×2 (09:18→20:17)
[2022-04-06] MEDS: Aspirin 81 mg Enteric Coated Tablet PO SCH (09:18)
[2022-04-06] MEDS: Saccharomyces boulardii 250 MG CAP PO SCH (09:19)
[2022-04-06] MEDS: traMADol HCl 50 MG TAB PO PRN ×2 (09:26→17:31)
[2022-04-06] MEDS: Rosuvastatin 20 MG TAB PO SCH (20:16)
[2022-04-06] MEDS: Ezetimibe 10 MG TAB PO SCH (20:16)
[2022-04-06] MEDS: Enoxaparin Sodium 40 MG/0.4 ML SYRINGE SC SCH (20:16)
[2022-04-07] MEDS: Piperacillin/Tazobactam 3.375 GM in Sodium Chloride 0.9% 100 ML IVPB SCH ×3 (04:26→20:51)
[2022-04-07 04:36] LABS: #Eosinphils 0.6 thou/uL (0.0-0.7); #Lymphocytes 1.3 thou/uL (1.20-3.40); #Monocytes 0.6 thou/uL (0.11-0.59); %Basophils 0.3 % (0.0-1.0); %Eosinophils 7.7 % (0.0-10.0); %Lymphocytes 16.7 % (21.0-51.0); %Monocytes 8.3 % (0.0-10.0); %Neutrophils 67.1 % (42.0-75.0); Hemoglobin 10.1 g/dL (14.0-18.0); Mean Corpuscular HGB CONC 33.4 g/dL (32.0-36.0); Mean Corpuscular Hemoglobin 32.7 pg (27.0-31.0); Mean Corpuscular Volume 97.9 fL (78.0-98.0); Mean Platelet Volume 7.1 fL (7.4-10.4); Platelet Count 177 thou/uL (130-400); RBC Distribution Width 13.8 % (11.5-14.5); Red Blood Cell (RBC) Count 3.08 mill/uL (4.70-6.10); White Blood Cell (WBC) Count 7.5 thou/uL (4.8-10.8)
[2022-04-07 05:01] LABS: Anion Gap 11 mmol/L (10-20); BUN (Urea Nitrogen) 11 mg/dL (8.4-25.7); Calc. Creatinine Clearance 107 mL/min (70-130); Calcium 8.7 mg/dL (7.8-10.44); Carbon Dioxide 23 mmol/L (23-31); Chloride 107 mmol/L (98-107); Estimated GFR 93; Glucose 135 mg/dL (80-115); Potassium 4.2 mmol/L (3.5-5.1); Sodium 137 mmol/L (136-145)
[2022-04-07] MEDS: Aspirin 81 mg Enteric Coated Tablet PO SCH (09:26)
[2022-04-07] MEDS: Tamsulosin HCl 0.4 MG CAP PO SCH ×2 (09:27→20:52)
[2022-04-07] MEDS: Saccharomyces boulardii 250 MG CAP PO SCH (09:29)
[2022-04-07] MEDS: Acetaminophen 325 MG TAB PO PRN ×2 (12:03→20:51)
[2022-04-07] MEDS: HumaLOG 300 UNITS/3 ML VIAL SC PRN ×2 (12:39→16:39)
[2022-04-07] MEDS: traMADol HCl 50 MG TAB PO PRN (16:36)
[2022-04-07] MEDS: Enoxaparin Sodium 40 MG/0.4 ML SYRINGE SC SCH (20:51)
[2022-04-07] MEDS: Ezetimibe 10 MG TAB PO SCH (20:52)
[2022-04-07] MEDS: Rosuvastatin 20 MG TAB PO SCH (20:52)
[2022-04-08] MEDS: traMADol HCl 50 MG TAB PO PRN (00:52)
[2022-04-08] MEDS: Piperacillin/Tazobactam 3.375 GM in Sodium Chloride 0.9% 100 ML IVPB SCH (03:34)
[2022-04-08 03:43] VITALS: TEMP 97.9
[2022-04-08 04:58] LABS: #Eosinphils 0.5 thou/uL (0.0-0.7); #Lymphocytes 0.8 thou/uL (1.20-3.40); #Monocytes 0.4 thou/uL (0.11-0.59); #Neutrophils 3.3 thou/uL (1.40-6.50); %Basophils 0.2 % (0.0-1.0); %Eosinophils 9.4 % (0.0-10.0); %Lymphocytes 16.8 % (21.0-51.0); %Monocytes 7.2 % (0.0-10.0); %Neutrophils 66.4 % (42.0-75.0); Hemoglobin 10.3 g/dL (14.0-18.0); Mean Corpuscular HGB CONC 33.4 g/dL (32.0-36.0); Mean Corpuscular Hemoglobin 32.7 pg (27.0-31.0); Mean Corpuscular Volume 97.9 fL (78.0-98.0); Mean Platelet Volume 6.8 fL (7.4-10.4); Platelet Count 193 thou/uL (130-400); RBC Distribution Width 13.5 % (11.5-14.5); Red Blood Cell (RBC) Count 3.15 mill/uL (4.70-6.10); White Blood Cell (WBC) Count 4.9 thou/uL (4.8-10.8)
[2022-04-08 05:27] LABS: Anion Gap 13 mmol/L (10-20); BUN (Urea Nitrogen) 8 mg/dL (8.4-25.7); Calc. Creatinine Clearance 101 mL/min (70-130); Calcium 8.8 mg/dL (7.8-10.44); Carbon Dioxide 21 mmol/L (23-31); Chloride 108 mmol/L (98-107); Estimated GFR 91; Glucose 129 mg/dL (80-115); Potassium 3.9 mmol/L (3.5-5.1); Sodium 138 mmol/L (136-145)
[2022-04-08 06:55] VITALS: BP 115/74
[2022-04-08] MEDS: Saccharomyces boulardii 250 MG CAP PO SCH (08:27)
[2022-04-08] MEDS: Tamsulosin HCl 0.4 MG CAP PO SCH (08:28)
[2022-04-08] MEDS: Aspirin 81 mg Enteric Coated Tablet PO SCH (08:28)
== END 2022-04-08 10:51 | disposition home or self-care (01) | DRG 872 ==
LOC: ERS 13:45 → 2NO 16:37 → SJJU 04-08 06:50
PROVIDERS: ADMIT Hospitalist; ATTEND Internal Medicine
DX: A41.51 Sepsis due to Escherichia coli [E. coli] (principal); Z16.23 Resistance to quinolones and fluoroquinolones; E87.2 Acidosis; N17.9 Acute kidney failure, unspecified; N41.0 Acute prostatitis; N39.0 Urinary tract infection, site not specified; Z20.822 Contact with and (suspected) exposure to COVID-19; I10 Essential (primary) hypertension; I25.10 Atherosclerotic heart disease of native coronary artery without angina pectoris; E78.5 Hyperlipidemia, unspecified; N40.0 Benign prostatic hyperplasia without lower urinary tract symptoms; D64.9 Anemia, unspecified; E11.9 Type 2 diabetes mellitus without complications; K21.9 Gastro-esophageal reflux disease without esophagitis; Z95.1 Presence of aortocoronary bypass graft; Z87.440 Personal history of urinary (tract) infections; Z79.899 Other long term (current) drug therapy; Z79.82 Long term (current) use of aspirin; Z79.84 Long term (current) use of oral hypoglycemic drugs; Z90.49 Acquired absence of other specified parts of digestive tract
CPT/HCPCS: 36415; 36416; 71045; 74177; 80048; 80053; 81003; 81015; 83605; 83690; 84484; 85025; 87040; 87077; 87086; 87186; 93005; 94760; 96365; 96375; J1650; J1815; J1885; J2405; J2543; J3490; J7050; Q9967; U0003; U0005

== ENCOUNTER 2022-04-09 05:19 | Emergency (ER) | payer BC ==
[2022-04-09] MEDS ORDERED: Sodium Chloride 0.9% 100 ML ONE (06:20)
[2022-04-09] MEDS ORDERED: Piperacillin/Tazobactam 4.5 GM VIAL ONE (06:20)
[2022-04-09 06:32] LABS: Bacteria/HPF None Seen HPF (None Seen); Bilirubin Negative (Negative); Blood, Urine Negative (Negative); Clarity Clear (Clear); Glucose, Urine (Dipstick) Normal (Negative); Ketone, Urine Negative (Negative); Leukocyte 25 Leu/uL (Negative); Nitrite Negative (Negative); Protein, Urine (Dipstick) Negative (Neg-Trace); RBC/HPF 0-3 HPF (0-3); Specific Gravity, Urine 1.007 (1.002-1.036); Squamous Epithelial None Seen HPF (0-3); Urobilinogen Normal mg/dL (Less than 2); pH, Urine 5.5 (5.0-9.0)
[2022-04-09 06:33] LABS: #Eosinphils 0.1 thou/uL (0.0-0.7); #Lymphocytes 0.2 thou/uL (1.20-3.40); #Monocytes 0.1 thou/uL (0.11-0.59); #Neutrophils 7.9 thou/uL (1.40-6.50); %Basophils 0.2 % (0.0-1.0); %Eosinophils 0.9 % (0.0-10.0); %Lymphocytes 1.8 % (21.0-51.0); %Monocytes 0.7 % (0.0-10.0); %Neutrophils 96.4 % (42.0-75.0); Hemoglobin 11.5 g/dL (14.0-18.0); Mean Corpuscular HGB CONC 34.6 g/dL (32.0-36.0); Mean Corpuscular Hemoglobin 33.3 pg (27.0-31.0); Mean Corpuscular Volume 96.1 fL (78.0-98.0); Mean Platelet Volume 6.9 fL (7.4-10.4); Platelet Count 204 thou/uL (130-400); RBC Distribution Width 13.9 % (11.5-14.5); Red Blood Cell (RBC) Count 3.47 mill/uL (4.70-6.10); White Blood Cell (WBC) Count 8.2 thou/uL (4.8-10.8)
[2022-04-09 06:53] LABS: ALT (SGPT) 28 U/L (8-55); AST (SGOT) 21 U/L (5-34); Albumin 3.4 g/dL (3.4-4.8); Alkaline Phosphatase 37 U/L (40-110); Anion Gap 13 mmol/L (10-20); BUN (Urea Nitrogen) 9 mg/dL (8.4-25.7); Bilirubin, Total 0.6 mg/dL (0.2-1.2); Calc. Creatinine Clearance 0 mL/min (70-130); Calcium 9.2 mg/dL (7.8-10.44); Carbon Dioxide 22 mmol/L (23-31); Chloride 103 mmol/L (98-107); Estimated GFR 59; Globulin 2.8 g/dL (2.4-3.5); Glucose 166 mg/dL (80-115); Potassium 4.1 mmol/L (3.5-5.1); Protein, Total 6.2 g/dL (5.8-8.1); Sodium 134 mmol/L (136-145)
[2022-04-09] MEDS ORDERED: Morphine 4 MG/ML VIAL ONE (09:31)
== END 2022-04-09 09:53 | disposition home or self-care (01) ==
LOC: ERS 05:19
DX: N41.0 Acute prostatitis (principal); R33.9 Retention of urine, unspecified; E78.00 Pure hypercholesterolemia, unspecified; I10 Essential (primary) hypertension; Z79.899 Other long term (current) drug therapy; Z79.84 Long term (current) use of oral hypoglycemic drugs
CPT/HCPCS: 36415; 51798; 80053; 81003; 81015; 83605; 85025; 87040; 87086; 96365; 96375; J2270; J2543; J3490

== ENCOUNTER 2024-08-04 15:23 | Outpatient (CLI) | payer BC ==
[2024-08-04 17:41] LABS: #Basophils Less than 0.03 10x3/uL (0.0-0.2); %Basophils 0.3 % (0.0-1.0); %Eosinophils 6.3 % (0.0-10.0); %Lymphocytes 21.1 % (21.0-51.0); %Monocytes 6.7 % (0.0-10.0); %Neutrophils 65.3 % (42.0-75.0); Hematocrit 41.3 % (42.0-52.0); Hemoglobin 13.7 g/dL (14.0-18.0); Mean Corpuscular HGB CONC 33.2 g/dL (32.0-36.0); Mean Corpuscular Hemoglobin 31.3 pg (27.0-31.0); Mean Corpuscular Volume 94.3 fL (78.0-98.0); Mean Platelet Volume 10.8 fL (7.4-10.4); Platelet Count 194 10x3/uL (130-400); RBC Distribution Width 13.2 % (11.5-14.5); Red Blood Cell (RBC) Count 4.38 mill/uL (4.70-6.10)
[2024-08-04 18:22] LABS: Calc. Creatinine Clearance 0 mL/min (70-130); Estimated GFR 36
[2024-08-04 18:24] LABS: ALT (SGPT) 24 U/L (8-55); AST (SGOT) 19 U/L (5-34); Albumin 4.1 g/dL (3.4-4.8); Alkaline Phosphatase 27 U/L (40-110); Anion Gap 13 mmol/L (10-20); BUN (Urea Nitrogen) 22 mg/dL (8.4-25.7); Bilirubin, Total 0.3 mg/dL (0.2-1.2); Calcium 9.9 mg/dL (7.8-10.44); Carbon Dioxide 23 mmol/L (23-31); Chloride 109 mmol/L (98-107); Globulin 3.1 g/dL (2.4-3.5); Glucose 113 mg/dL (83-110); Potassium 4.1 mmol/L (3.5-5.1); Protein, Total 7.2 g/dL (5.8-8.1); Sodium 141 mmol/L (136-145)
== END 2024-08-04 15:24 | disposition home or self-care (01) ==
LOC: LABBT 15:23
PROVIDERS: ATTEND Internal Medicine Cardiovascular Disease
DX: Z01.818 Encounter for other preprocedural examination (principal); R94.39 Abnormal result of other cardiovascular function study; J98.6 Disorders of diaphragm
CPT/HCPCS: 71045; 80053; 85025; 93005; 93010

== ENCOUNTER 2024-08-05 06:04 | Day surgery (SDC) | payer BC ==
[2024-08-04 16:05] VITALS: BMI 32.1
[2024-08-05] MEDS ORDERED: fentaNYL 50 mcg/mL 1 mL Vial ONE (06:21)
[2024-08-05] MEDS ORDERED: Midazolam HCl 2 mg/2 ml Vial ONE (06:21)
[2024-08-05] MEDS ORDERED: Verapamil 5 MG/2 ML VIAL ONE (06:21)
[2024-08-05] MEDS ORDERED: Heparin 10,000 UNITS/ 10 ML VIAL ONE (06:21)
[2024-08-05] MEDS ORDERED: Nitroglycerin 50 MG/250 ML BOT 250 ML ONE (06:22)
[2024-08-05] MEDS ORDERED: PHENYLEPHRINE-NS 100 MCG/ML 10 ML SYRINGE ONE (07:35)
[2024-08-05] MEDS ORDERED: Atropine Sulfate 1 mg/10 ml Syringe ONE (07:36)
== END 2024-08-05 13:11 | disposition home or self-care (01) ==
LOC: SDC 06:04
PROVIDERS: ATTEND Internal Medicine Cardiovascular Disease
PROC: 4A023N8 Measurement of Cardiac Sampling and Pressure, Bilateral, Percutaneous Approach (ICD-10-PCS; principal; 2024-08-05)
PROC: B206YZZ Plain Radiography of Right and Left Heart using Other Contrast (ICD-10-PCS; principal; 2024-08-05)
DX: I25.10 Atherosclerotic heart disease of native coronary artery without angina pectoris (principal); R94.39 Abnormal result of other cardiovascular function study; E11.9 Type 2 diabetes mellitus without complications; I10 Essential (primary) hypertension; N40.0 Benign prostatic hyperplasia without lower urinary tract symptoms; Z95.1 Presence of aortocoronary bypass graft; Z79.82 Long term (current) use of aspirin; Z79.899 Other long term (current) drug therapy; Z79.84 Long term (current) use of oral hypoglycemic drugs
CPT/HCPCS: 93459; 99152; 99153; C1725; J0461; J1644; J2250; J3010